=== PATIENT | male | born 1945 | race Caucasian/White ===

== ENCOUNTER 2022-01-04 13:26 | Emergency (ER) | payer OTHER, MEDICARE | END 2022-01-04 14:35 | disposition home or self-care (01) | LOC: FB.ED 13:26 | DX: S00.412A Abrasion of left ear, initial encounter (principal); S00.31XA Abrasion of nose, initial encounter; S40.812A Abrasion of left upper arm, initial encounter; V43.92XA Unspecified car occupant injured in collision with other type car in traffic accident, initial encounter; Y92.410 Unspecified street and highway as the place of occurrence of the external cause | CPT/HCPCS: 99284 ==